=== PATIENT | male | born 1955 | race Caucasian/White ===

== ENCOUNTER → 2016-10-21 | Outpatient (CLI) | payer OTHER ==
[2016-10-21 17:30] LABS: MEAN CORPUSCULAR HEMOGLOBIN 32.1 pg (27.0-33.0); MEAN CORPUSCULAR HGB CONC 34.2 g/dl (32.0-36.5); RED CELL DISTRIBUTION WIDTH 11.9 % (11.5-14.5)
[2016-10-21 17:31] LABS: ALBUMIN 4.3 GM/DL (3.2-5.2); ALKALINE PHOSPHATASE 83 U/L (45-117); ALT/SGPT 34 U/L (12-78); ANION GAP 9 MEQ/L (8-16); AST/SGOT 21 U/L (15-37); BILIRUBIN,TOTAL 0.8 MG/DL (0.2-1.0); BLOOD UREA NITROGEN 14 MG/DL (7-18); CALCIUM LEVEL 9.3 MG/DL (8.5-10.1); CARBON DIOXIDE LEVEL 29 MEQ/L (21-32); CHLORIDE LEVEL 103 MEQ/L (98-107); CHOLESTEROL LEVEL 199 MG/DL (<200); CREATININE FOR GFR 1.08 MG/DL (0.70-1.30); GLOMERULAR FILTRATION RATE > 60.0 (>56); GLUCOSE, FASTING 87 MG/DL (70-105); POTASSIUM SERUM 4.5 MEQ/L (3.5-5.1); SODIUM LEVEL 141 MEQ/L (136-145); TOTAL PROTEIN 7.6 GM/DL (6.4-8.2); TRIGLYCERIDES LEVEL 98 MG/DL (<150)
== END | disposition home or self-care (01) ==
LOC: M WUC 14:55
PROVIDERS: ATTEND Internal Medicine
DX: I10 Essential (primary) hypertension (principal); E78.00 Pure hypercholesterolemia, unspecified

== ENCOUNTER → 2017-10-20 | Outpatient (CLI) | payer OTHER ==
[2017-10-20 19:02] LABS: MEAN CORPUSCULAR HEMOGLOBIN 31.2 pg (27.0-33.0); MEAN CORPUSCULAR HGB CONC 32.6 g/dl (32.0-36.5); MEAN CORPUSCULAR VOLUME 95.6 fl (80.0-96.0); PLATELET COUNT, AUTOMATED 257 10^3/uL (150-450); RED BLOOD COUNT 4.81 10^6/uL (4.30-6.10); RED CELL DISTRIBUTION WIDTH 12.1 % (11.5-14.5); WHITE BLOOD COUNT 7.7 10^3/uL (4.0-10.0)
[2017-10-20 19:12] LABS: ALBUMIN 4.2 GM/DL (3.2-5.2); ALBUMIN/GLOBULIN RATIO 1.31 (1.00-1.93); ALKALINE PHOSPHATASE 83 U/L (45-117); ALT/SGPT 37 U/L (12-78); ANION GAP 5 MEQ/L (8-16); AST/SGOT 24 U/L (7-37); BILIRUBIN,TOTAL 0.6 MG/DL (0.2-1.0); BLOOD UREA NITROGEN 21 MG/DL (7-18); CALCIUM LEVEL 8.5 MG/DL (8.8-10.2); CARBON DIOXIDE LEVEL 31 MEQ/L (21-32); CHLORIDE LEVEL 106 MEQ/L (98-107); CHOLESTEROL LEVEL 149 MG/DL (<200); CHOLESTEROL RISK RATIO 2.865 (<5); CREATININE FOR GFR 1.04 MG/DL (0.70-1.30); GLOMERULAR FILTRATION RATE > 60.0 (>49); GLUCOSE, FASTING 83 MG/DL (80-110); HDL CHOLESTEROL 52 MG/DL (>40); MAGNESIUM LEVEL 2.4 MG/DL (1.8-2.4); NON-HDL-C 97 MG/DL; POTASSIUM SERUM 4.6 MEQ/L (3.5-5.1); SODIUM LEVEL 142 MEQ/L (136-145); TOTAL PROTEIN 7.4 GM/DL (6.4-8.2); TRIGLYCERIDES LEVEL 120 MG/DL (<150)
== END ==
LOC: M WUC 11:16
DX: Z00.00 Encounter for general adult medical examination without abnormal findings (principal); I10 Essential (primary) hypertension; E78.00 Pure hypercholesterolemia, unspecified; J30.9 Allergic rhinitis, unspecified
CPT/HCPCS: 83735

== ENCOUNTER 2018-05-01 07:30 | Day surgery (SDC) | payer OTHER ==
[2018-05-01] MEDS ORDERED: PROPOFOL 200 MG/20 ML VIAL As Ordered ×2 (08:00)
[2018-05-01] MEDS ORDERED: LIDOCAINE 2% INJ 100 MG/5 ML SDV (FOR ANES.) As Ordered (08:00)
[2018-05-01] MEDS: NS 1,000 ML IV (08:00)
== END 2018-05-01 09:26 | disposition home or self-care (01) ==
LOC: M OPP 07:30
DX: Z12.11 Encounter for screening for malignant neoplasm of colon (principal); K64.0 First degree hemorrhoids; D12.2 Benign neoplasm of ascending colon; Z86.010 Personal history of colon polyps; I10 Essential (primary) hypertension; Z79.82 Long term (current) use of aspirin; Z79.899 Other long term (current) drug therapy; Z88.0 Allergy status to penicillin
CPT/HCPCS: 45380

== ENCOUNTER → 2019-01-21 | Outpatient (CLI) | payer OTHER ==
[~2019-01-21] MED LIST: ASPI81TA85 PO; LOSA100T50 PO
--- NOTE | 2019-01-21 16:44 | REP ---
Bilateral inguinal and bilateral scrotal sonography: History: Left scrotal swelling and discomfort. Scrotal sonographic findings: The testes are normal in size and homogeneous in texture. No intratesticular mass lesion is seen. Doppler flow is preserved to both testes. Resistive indices are 0.43 on the right and 0.60 on the left. The right testis dimensions are 4.1 x 1.6 x 2.8 cm. Left testicular dimensions are 3.2 x 1.5 x 2.6 cm. Epididymi are symmetric. There is a right-sided epididymal cyst measuring 0.6 cm in greatest diameter. There are several left-sided epididymal cysts, the largest of these measures 0.9 cm in greatest diameter. There are small bilateral hydroceles. Inguinal sonography: Scanning of the inguinal rings demonstrate bilateral inguinal hernias containing abdominal fat. On the right, the defect is 1 cm in size with a reducible small amount of abdominal fat protruding into the canal with Valsalva and exiting the canal with relaxation. On the left however, there is a herniation of abdominal fat through the inguinal ring into the scrotal sac above the testis. This is not reducible. No bowel content is seen within the hernia. Impression : Bilateral inguinal hernia with non reducible herniation of abdominal fat extending through the inguinal canal on the left into the scrotal sac. Small reducible right inguinal hernia. No other intratesticular abnormality. Electronically Signed by David Lozano MD 01/21/2019 05:16 P
== END ==
LOC: M RAD 14:18
PROVIDERS: ATTEND Family Medicine
DX: K40.20 Bilateral inguinal hernia, without obstruction or gangrene, not specified as recurrent (principal); N50.82 Scrotal pain
CPT/HCPCS: 76857; 76870; 93976; G0463

== ENCOUNTER → 2019-03-15 | Outpatient (CLI) | payer OTHER ==
[~2019-03-15] MED LIST changes: +ATOR1TAB19 PO; +OMEP40CA2 PO
[2019-03-15 16:59] LABS: ALBUMIN 3.9 GM/DL (3.2-5.2); ALT/SGPT 38 U/L (12-78); BILIRUBIN,TOTAL 1.1 MG/DL (0.2-1.0); BLOOD UREA NITROGEN 26 MG/DL (7-18); CALCIUM LEVEL 8.5 MG/DL (8.8-10.2); CARBON DIOXIDE LEVEL 26 MEQ/L (21-32); CHLORIDE LEVEL 105 MEQ/L (98-107); CHOLESTEROL LEVEL 146 MG/DL (<200); CHOLESTEROL RISK RATIO 2.703 (<5); CREATININE FOR GFR 1.11 MG/DL (0.70-1.30); GLOMERULAR FILTRATION RATE > 60.0 (>49); GLUCOSE, FASTING 79 MG/DL (70-100); HDL CHOLESTEROL 54 MG/DL (>40); LDL CHOLESTEROL 81 MG/DL (<100); NON-HDL-C 92 MG/DL; POTASSIUM SERUM 3.9 MEQ/L (3.5-5.1); SODIUM LEVEL 139 MEQ/L (136-145); TOTAL PROTEIN 7.5 GM/DL (6.4-8.2); TRIGLYCERIDES LEVEL 57 MG/DL (<150)
== END ==
LOC: M WUC 12:27
PROVIDERS: ATTEND Internal Medicine
DX: Z00.00 Encounter for general adult medical examination without abnormal findings (principal)

== ENCOUNTER 2019-03-30 07:54 | Day surgery (SDC) | payer OTHER ==
[~2019-03-30] VITALS: Ht 172.7 cm; Wt 108.4 kg
[~2019-03-30 07:54] MED LIST changes: +LIDOCAINE 1% MDV 20ML VIAL SQ PRN; +LR 1,000 ML IV ONE
[2019-03-30] MEDS ORDERED: MIDAZOLAM INJ 2 MG/2 ML VIAL (J2250) As Ordered ONE (08:24)
[2019-03-30] MEDS ORDERED: fentaNYL 100 MCG/2 ML INJECTION (J3010) As Ordered ONE (08:24)
[2019-03-30] MEDS ORDERED: ROCURONIUM BROMIDE 50 MG/5 ML VIAL As Ordered ONE (08:25)
[2019-03-30] MEDS ORDERED: LIDOCAINE 2% INJ 100 MG/5 ML SDV (FOR ANES.) As Ordered ONE (08:25)
[2019-03-30] MEDS ORDERED: KETOROLAC 60 MG/2 ML VIAL (J1885) As Ordered ONE (08:25)
[2019-03-30] MEDS ORDERED: dexameTHASONE 4 MG/ML 1ML VIAL (J1100) As Ordered ONE (08:25)
[2019-03-30] MEDS ORDERED: ONDANSETRON 4MG/2ML VIAL (J2405) As Ordered ONE (08:25)
[2019-03-30] MEDS ORDERED: KETAMINE HCL 200 MG/20 ML VIAL As Ordered ONE (08:26)
[2019-03-30] MEDS ORDERED: PROPOFOL 200 MG/20 ML VIAL As Ordered ONE (08:28)
[2019-03-30] MEDS ORDERED: SUGAMMADEX SODIUM 500 MG/5 ML VIAL (BRIDION) As Ordered ONE (08:32)
[2019-03-30] MEDS ORDERED: LevoFLOXacin(LEVAQUIN)500 MG/100 ML BAG (J1956) As Ordered ONE (09:21)
[2019-03-30] MEDS ORDERED: BUPIVACAINE/EPIN 0.25% 30 ML VIAL As Ordered ONE (09:24)
[2019-03-30] MEDS ORDERED: LevoFLOXacin IV 500 MG in APPROPRIATE DILUENT 1 EA IV ONE (10:00)
[2019-03-30] MEDS ORDERED: ACETAMINOPHEN 1000MG 100ML IV BTL (OFIRMEV) (J0131 PER 10MG) As Ordered ONE (11:01)
[2019-03-30] MEDS ORDERED: METHOCARBAMOL 1,000 MG/10 ML VIAL (J2800) As Ordered ONE (11:01)
--- NOTE | 2019-03-30 12:25 | RO ---
DATE OF PROCEDURE: 03/30/2019 PREOPERATIVE DIAGNOSIS: Left inguinal hernia. POSTOPERATIVE DIAGNOSIS: Left inguinal hernia (indirect and lipoma of the cord). PROCEDURE:Robotic Assisted Laparoscopic Left Inguinal Hernia Repair. SURGEON: Dr. Jc Coleman ENGRAVER BLOCK: Cheryl Iverson (provided instrument exchange, trocar placement and trocar closure as well as mesh placement). ANESTHESIA: General endotracheal anesthesia ESTIMATED BLOOD LOSS: Minimal FLUIDS: Crystalloid DISPOSITION: The patient was taken to recovery room awake, alert hemodynamic stable. Sponge and needle counts correct times two. DESCRIPTION OF OPERATION: The patient was taken operating room and was given general anesthesia after adequate anesthesia and preoperative antibiotics were given, the patient was prepped and draped in the usual sterile fashion. Next a supraumbilical incision was made with skin knife. Blunt dissection was carried down to fascia and Veress needle placed into the abdominal cavity insufflated to 15 mm pressure dilating an 8 mm trocar was placed under direct visualization and two lateral 8 mm trocars were placed. The camera/robot was docked and then the left inguinal area showed a very large lipoma cord with a relatively small indirect hernia on that side but the lipoma was very large and was going down into the scrotum itself. In any case, the peritoneum was taken down with sharp dissection and electrocautery. Blunt dissection was used to create this peritoneal plane and all the way down to the cord structures Bro's ligament. Once this was mobilized off the cord structures and Bro's, then the lipoma was pushed back into the abdominal cavity. It was in the scrotum at this time and was pushed up, grasped and then dissected off surrounding tissue that was dissected proximally. Given it was such a large lipoma, there was a great deal of a stalk to it and I approximately mobilized this significantly so that the mesh could be placed in the appropriate preperitoneal spot with the lipoma and being able to sit on the top of this. In any case, at that this point it was obvious that it was coming posterior to the cord structures and the cord structures were elevated to some extent. I felt that I needed to dissect posterior the cord structures and placed the mesh with a slit behind the cord structures in this area. Once this was placed, the mesh was lying quite nicely in this area. The lipoma did slide in and out a fair bit and at this point I felt it was reasonable to tack it to the peritoneal closure and remove a good portion of the lipoma as well. It was placed in an EndoCatch bag, brought out through the right-sided 8 mm trocar site. Next the incisions were all closed with #4-0 Vicryl and Steri-Strips and a dry sterile dressing was applied. The patient was awakened, extubated, brought to the recovery room awake, alert, hemodynamically stable. Sponge and needle counts were correct time two. FLORA
[2019-03-30] MEDS ORDERED: LR 1,000 ML IV SCH ×2 (13:15)
[2019-03-30] MEDS ORDERED: NORCO, ANEXSIA 5/325MG TABLET (HYDROcodone/ACETAMINOPHEN) PO PRN (13:15)
[2019-03-30] MEDS ORDERED: METOCLOPRAMIDE INJ 10MG/2ML VIAL (J2765) IV PRN (13:15)
[2019-03-30] MEDS ORDERED: ONDANSETRON 4MG/2ML VIAL (J2405) IV PRN (13:15)
[2019-03-30] MEDS ORDERED: diphenhydrAMINE INJ 50MG/ML VIAL (J1200) IV PRN (13:15)
[2019-03-30] MEDS ORDERED: oxyCODONE 5MG TAB PO PRN (13:30)
[2019-03-30] MEDS: fentaNYL 100 MCG/2 ML INJECTION (J3010) IV PRN ×4 (13:55→14:10)
[2019-03-30] MEDS ORDERED: KETOROLAC 30 MG/ML VIAL (J1885) IV SCH (15:00)
[2019-03-30 16:50] VITALS: BP 132/88
== END 2019-03-30 17:00 | disposition home or self-care (01) ==
LOC: M SDC 07:54
PROVIDERS: ATTEND Surgery
DX: K40.90 Unilateral inguinal hernia, without obstruction or gangrene, not specified as recurrent (principal); I10 Essential (primary) hypertension; K21.9 Gastro-esophageal reflux disease without esophagitis; Z79.82 Long term (current) use of aspirin; Z79.899 Other long term (current) drug therapy; Z88.0 Allergy status to penicillin
CPT/HCPCS: 49650; C1781; J0131; J1100; J1885; J1956; J2250; J2405; J2800; J3010

== ENCOUNTER → 2019-11-03 | Outpatient (CLI) | payer OTHER ==
[~2019-11-03] MED LIST changes: -LIDOCAINE 1% MDV 20ML VIAL SQ PRN; -LR 1,000 ML IV ONE; -OMEP40CA2 PO; +OMEP40CA97 PO
[2019-11-03 17:06] LABS: HEMATOCRIT 49.9 % (42.0-52.0); MEAN CORPUSCULAR HEMOGLOBIN 30.9 pg (27.0-33.0); MEAN CORPUSCULAR HGB CONC 32.1 g/dl (32.0-36.5); MEAN CORPUSCULAR VOLUME 96.3 fl (80.0-96.0); PLATELET COUNT, AUTOMATED 238 10^3/uL (150-450); RED BLOOD COUNT 5.18 10^6/uL (4.30-6.10)
[2019-11-03 17:19] LABS: ALBUMIN 4.3 GM/DL (3.2-5.2); ALT/SGPT 48 U/L (12-78); BILIRUBIN,TOTAL 0.9 MG/DL (0.2-1.0); BLOOD UREA NITROGEN 17 MG/DL (7-18); CALCIUM LEVEL 8.9 MG/DL (8.8-10.2); CARBON DIOXIDE LEVEL 29 MEQ/L (21-32); CHLORIDE LEVEL 102 MEQ/L (98-107); CHOLESTEROL LEVEL 146 MG/DL (<200); CHOLESTEROL RISK RATIO 3.173 (<5); CREATININE FOR GFR 1.15 MG/DL (0.70-1.30); GLOMERULAR FILTRATION RATE > 60.0 (>49); GLUCOSE, FASTING 82 MG/DL (70-100); HDL CHOLESTEROL 46 MG/DL (>40); LDL CHOLESTEROL 86 MG/DL (<100); MAGNESIUM LEVEL 2.1 MG/DL (1.8-2.4); NON-HDL-C 100 MG/DL; POTASSIUM SERUM 4.4 MEQ/L (3.5-5.1); SODIUM LEVEL 138 MEQ/L (136-145); TOTAL PROTEIN 7.8 GM/DL (6.4-8.2); TRIGLYCERIDES LEVEL 69 MG/DL (<150)
== END ==
LOC: M WUC 11:16
PROVIDERS: ATTEND Internal Medicine
DX: Z00.00 Encounter for general adult medical examination without abnormal findings (principal); E78.00 Pure hypercholesterolemia, unspecified; Z12.5 Encounter for screening for malignant neoplasm of prostate; Z86.010 Personal history of colon polyps
CPT/HCPCS: 36415; 80053; 80061; 83735; 84443; 85027; G0103

== ENCOUNTER → 2020-11-24 | Outpatient (CLI) | payer OTHER ==
[~2020-11-24] MED LIST changes: -ASPI81TA85 PO; +ASPI81TA86 PO
[2020-11-24 11:43] LABS: BASO # 0.1 10^3/uL (0.0-0.2); BASO % 0.7 % (0.0-1.0); EOS # 0.2 10^3/uL (0.0-0.5); EOS % 2.6 % (0.0-3.0); HEMATOCRIT 46.9 % (42.0-52.0); LYMPH # 3.2 10^3/uL (1.5-5.0); LYMPH % 39.2 % (24.0-44.0); MEAN CORPUSCULAR HEMOGLOBIN 30.5 pg (27.0-33.0); MEAN CORPUSCULAR VOLUME 95.3 fl (80.0-96.0); MONO # 0.9 10^3/uL (0.0-0.8); MONO % 10.7 % (2.0-8.0); NEUTROPHILS # 3.8 10^3/uL (1.5-8.5); NEUTROPHILS % 46.6 % (36.0-66.0); PLATELET COUNT, AUTOMATED 249 10^3/uL (150-450); RED BLOOD COUNT 4.92 10^6/uL (4.30-6.10); WHITE BLOOD COUNT 8.2 10^3/uL (4.0-10.0)
[2020-11-24 12:23] LABS: ALBUMIN 3.9 GM/DL (3.2-5.2); ALT/SGPT 44 U/L (12-78); BILIRUBIN,TOTAL 1.1 MG/DL (0.2-1.0); BLOOD UREA NITROGEN 22 MG/DL (7-18); CALCIUM LEVEL 9.2 MG/DL (8.8-10.2); CARBON DIOXIDE LEVEL 31 MEQ/L (21-32); CHLORIDE LEVEL 102 MEQ/L (98-107); CHOLESTEROL LEVEL 145 MG/DL (<200); CHOLESTEROL RISK RATIO 3.152 (<5); CREATININE FOR GFR 1.13 MG/DL (0.70-1.30); GLOMERULAR FILTRATION RATE > 60.0 (>49); GLUCOSE, FASTING 81 MG/DL (70-100); HDL CHOLESTEROL 46 MG/DL (>40); LDL CHOLESTEROL 82 MG/DL (<100); MAGNESIUM LEVEL 2.1 MG/DL (1.8-2.4); NON-HDL-C 99 MG/DL; POTASSIUM SERUM 4.6 MEQ/L (3.5-5.1); SODIUM LEVEL 139 MEQ/L (136-145); TOTAL PROTEIN 7.2 GM/DL (6.4-8.2); TRIGLYCERIDES LEVEL 83 MG/DL (<150)
[2020-11-24 12:56] LABS: HEPATITIS C VIRUS ABY INDEX 0.1 INDEX (<0.8)
== END ==
LOC: M WUC 08:49
PROVIDERS: ATTEND Internal Medicine
DX: E78.00 Pure hypercholesterolemia, unspecified (principal); I10 Essential (primary) hypertension; Z86.010 Personal history of colon polyps
CPT/HCPCS: 36415; 80053; 80061; 83735; 85025; 86803; G0103

== ENCOUNTER 2021-08-03 21:16 | Emergency (ER) | payer OTHER ==
[~2021-08-03] VITALS: Ht 172.7 cm; Wt 115.9 kg
[~2021-08-03 21:16] MED LIST changes: +OMEP40CA4 PO; -OMEP40CA97 PO
[2021-08-03 21:18] VITALS: BP 165/99
--- OUTSIDE RECORDS SUMMARY | 2021-08-03 21:28 | CCD ---
Author Author [facility] em[facility] Organization [facility] ems Address Unknown Phone Unavailable Care Team Providers Care Production Welding Supervisor Name Role Phone Ken Dubois Unavailable PROBLEMS Type Condition ICD9-CM Code [id number] Code Onset Dates Condition S tatus W/U Status Risk SNOMED Code Notes Problem History of adenomatous polyp of colon Z86.010 Ac tive confirmed 920572133 He had an adenomatous polyp in 2008 and again in April 2018. Problem Hypercholesterolemia E78.00 Active confirmed 34857543 He is on Lipitor 2 days a week. He stopped taking Crestor because it was not preferred on his pharmaceutical plan. Lipids are controlled to secondary prevention targets. This was last assessed November 2020 and labs are optimal. Problem Gastroesophageal reflux disease without esophagitis K21.9 Active confirmed [id number] He is on omeprazole therapy. His last upper endoscopy was in April 2018 and was fairly unremarkable. Problem Age-related incipient cataract of both eyes H25.09 3 Active confirmed [id number] Problem Lentigines L81.4 Active confirmed 296817484 Problem Allergic rhinitis J30.9 Active confirmed 61 313645 His symptoms are palliated with [id number] Chlor-Trimeton. He is no longer using Rhinocort. Problem Melanocytic nevi of trunk D22.5 Active confirmed 173591538 Problem Essential (primary) hypertension I10 Active conf irmed 33483596 Echocardiogram was unremarkable in September 2012 and again in August 2018. He was started on lisinopril therapy in 2015 but developed a cough. He is now on losartan 100 mg with hydrochlorothiazide 12.5 mg daily. Problem Sebaceous hyperplasia L73.8 Active confirmed 702913616 Problem Folliculitis L73.9 Active confirmed 8893429 6 Problem Actinic keratoses L57.0 Active confirmed 40 0971557 Problem Seborrheic keratoses L82.1 Active confirmed 705552181 ALLERGIES Allergen (clinical drug ingredient) Drug/Non Drug Allergy do cumented on EMR Reaction Allergy Type Onset Date Status Penicillin (For Allergies Use Only) Hives Drug Allerg y Active ENCOUNTERS from 1955 to 2021-06-05 Encounter Location Date Provider Diagnosis [facility] Carlene [address] [facility] [phone] [place] [address] 31 May, 2021 Ken Dubois IMMUNIZATIONS Vaccine Route Administration Date Status COVID-19 dose #2 given elsewhere Unspecified Unknown Oct 31, 2020 Administered COVID-19 dose #1 given elsewhere Unspecified Unknown Oct 03, 2020 Administered Influenza Pharmacy Given Unknown Aug 10, 2020 Adminis tered Influenza Pharmacy Given Unknown Jul 12, 2019 Adminis tered TDAP Unknown May 25, 2008 Administered TD Adult 0.5mL Tetanus Unknown May 04, 2019 Administe red TD Adult 0.5mL Tetanus Unknown Aug 17, 2003 Administe red Influenza 6mo & up Fluzone Unknown Jun 20, 2015 Admin istered Influenza 6mo & up Fluzone Unknown Jul 28, 2014 Admin istered SOCIAL HISTORY Tobacco Use: Social History Observation Description Date Details (start date - stop date) Never Smoker Sex Assigned At : Social History Observation Description Sex Assigned At Unknown Audit Question Answer Notes Total Score: 1 Interpretation: Alcohol Education Language: Question Answer Notes Languages spoken: Bolivian Temple: Question Answer Notes Temple No gnosticism beliefs that would impact health care. Domestic Violence: Question Answer Notes Status: Sexual Hx: Question Answer Notes Had sex in the last 12 months (vaginal, oral, or anal)? Yes Have you ever had an STD? No with Women only Drug and Alcohol Question Answer Notes Total Score: 0 Interpretation: No problems reported Alcohol Screening: Question Answer Notes Did you have a drink containing alcohol in the past year? Ye s Points 1 Interpretation Negative How often did you have six or more drinks on one occas ion in the past year? Never (0 points) How many drinks did you have on a typica l day when you were drinking in the past year? 1 or 2 (0 points) How often did you have a drink containing alcohol in t he past year? Monthly or less (1 point) BMI Care Goal Follow-Up Question Answer Notes Above Normal BMI Follow-Up Weight monitoring Tobacco Use: Question Answer Notes Are you a: never smoker REASON FOR REFERRAL No Information VITAL SIGNS No information MEDICATIONS Medication SIG (Take, Route, Frequency, Duration) Notes Start Da te End Date Status Losartan Potassium-HCTZ 100-12.5 MG 1 tablet Orally On ce a day; fill when pt requests for 90 day(s) Oct, Active Chlorpheniramine Maleate 4 mg 1 tablet as needed Orally daily PRN Active Omeprazole 40 MG 1 capsule Orally Once a day; fill when pt requests for 90 day(s) Jul, Active Lipitor 10 MG 1 tablet Orally Daily; fill when pt requests for 90 day(s) Jul, Active Sildenafil Citrate 100 MG 1 tablet Orally Once a day as needed f or 30 day(s) Oct, Active PROCEDURES No Information RESULTS No Results REASON FOR VISIT Re:RE:Surgical Referral MEDICAL (GENERAL) HISTORY Type Description Date Medical History Essential (primary) hypertension Medical History Hypercholesterolemia Medical History History of adenomatous polyp of colon Medical History Allergic rhinitis Surgical History Right inguinal hernia repair 1987 Surgical History Carpal Tunnel Release , bila teral (left 10/12/2003, right 11/09/2003) 2003 Surgical History Right femoral lymph node resecection for cat scratch fever 07/14/1995 Surgical History LASIK Eye Surgery 11/18/2008 Surgical History Colonoscopy 06/2009 Surgical History Left inguinal hernia repair 03/30/2019 Goals Section No Information Health Concerns No Information MEDICAL EQUIPMENT No Information MENTAL STATUS No Information FUNCTIONAL STATUS No Information ASSESSMENTS No Information PLAN OF TREATMENT Next Appt Details Provider Name:Ken Dubois, 2021-12-03 03 :30:00 PM, [address] [facility] [phone], [place], [address], Provider Name:Saida Singletary, 02:45:00 PM, [address] [facility] [phone], [place], [address], Insurance Providers Payer Name Payer Address Payer Phone Insured Name Patient Relati onship to Insured Coverage Start Date Coverage End Date [facility] [id number] [place] [id number] ORA JOHNSTON self
--- OUTSIDE RECORDS SUMMARY | 2021-08-03 21:28 | CCD ---
Author Author Donnie Liao MD [facility] Organization Donnie Liao MD [facility] Address [address] [place] [id number] Phone Care Team Providers Care Parking Meter Attendant Name Role Phone Yanni RAYMUNDO, Donnie SIMEON Unavailable [phone] Reason for Referral No Reason for Referral Recorded Problems Includes: Active, inactive, and resolved Problems All Visits Onset Date - Time Resolved Date - Time Provider Co ndition Status Cataract Senile Cortical 05/01/2020 - 12:00AM Donnie Liao MD, FACS Active Essential Hypertension 05/01/2020 - 12:00AM Donnie Bradley MD, FACS Active Retinopathy Hypertensive 05/01/2020 - 12:00AM Donnie Liao MD, FACS Active Pinguecula 05/01/2020 - 12:00AM Donnie Liao MD, FACS Active Cataract Senile Nuclear 05/01/2020 - 12:00AM Donnie Liao MD, FACS Active Dry Eye Syndrome 05/01/2020 - 12:00AM Donnie burdick MD, FACS Active Vitreous Disorders Degeneration 05/01/2020 - 12:00AM Donnie Liao MD, FACS Active Migraine Headache 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 05/01/2020 - 12:00AM Donnie Liao MD, FACS Active Plan of Treatment No Plan of Treatment Recorded Assessments Includes: Assessments for all patient encounters Findings Encounter Date Cortical senile cataract 1 Year Follow-Up with Donnie Quan MD, CAILIN 05/23/2021 Dry eye syndrome 1 Year Follow-Up with Donnie hall MD, CAILIN 05/23/2021 Essential hypertension 1 Year Follow-Up with Donnie Colin MD, FACS 05/23/2021 Hypertensive retinopathy 1 Year Follow-Up with Donnie Quan MD, FACS 05/23/2021 Nuclear senile cataract 1 Year Follow-Up with Donnie Butler MD, FACS 05/23/2021 Cortical senile cataract TRIAGE NEW PATIENT with Donnie Cowart MD, FACS 05/01/2020 Dry eye syndrome TRIAGE NEW PATIENT with Donnie burdick MD, FACS 05/01/2020 Essential hypertension TRIAGE NEW PATIENT with Donnie Quan MD, FACS 05/01/2020 Hypertensive retinopathy TRIAGE NEW PATIENT with Donnie Cowart MD, FACS 05/01/2020 Nuclear senile cataract TRIAGE NEW PATIENT with Donnie White MD, FACS 05/01/2020 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 TRIAGE NEW PATIENT with Donnie Liao MD, FACS 05/01/2020 Pinguecula TRIAGE NEW PATIENT with Donnie burdick MD, FACS 05/01/2020 Vitreous degeneration TRIAGE NEW PATIENT with Donnie Btuler MD, FACS 05/01/2020 Instructions Instructions not supported for this document typeNo Instructions Recorded Medical Equipment - Implanted Devices Includes: Current and historical DevicesNo Medical Equipment Recorded Medications Includes: Current and historical Medications Current Medications (continue as prescribed) Diovan HCT 100-25 MG Oral Tablet 05/01/2020 Provide r: Diagnosis: Aspirin Adult Low Dose 81 MG Oral Tablet Delayed Release Provider: Diagnosis: Atorvastatin 10 mg Oral Tablet 05/01/2020 Provider: Diagnosis: Friday and Medications Administered Includes: Administered Medications in patient's chartNo Administered Medications Recorded Vital Signs Includes: Vital Signs from 08/02/2020 through 08/02/2021No Vital Signs Recorded For Specified Dates Results Includes: Results from 08/02/2020 through 08/02/2021No Results Recorded For Specified Dates History of Present Illness History of Present Illness not supported for this document typeNo History of Present Illness Recorded Social History Description Last Updated Not a current smoker 05/23/2021 Alcohol use 1-2 beers monthly 05/01/2020 No tobacco use 05/01/2020 Not using drugs 05/01/2020 No smoking status : Never smoked/ Recode: 4 05/01/2020 Procedures and Surgical History Surgical History Last Updated History of LASIK surgery of both corneas 2006 020 Surgical / procedural history Right Inquinal Hernia R epair 03/201905/01/2020 Medical History Includes: Medical History in patient's chart Description Last Updated Reported medical history Cat Scratch Fever 1996, Hist ory migraines 05/01/2020 History of essential hypertension 05/01/2020 History of hypertension 05/01/2020 History of arthritis 05/01/2020 History of hyperlipidemia 05/01/2020 Family History Includes: Family History in patient's chart Description Last Updated Fraternal history of hypertension 05/01/2020 Maternal history of heart disease 05/01/2020 Maternal history of hypertension 05/01/2020 Paternal history of arthritis 05/01/2020 Paternal history of cataract 05/01/2020 Paternal history of family history of cancer 0 Review of Systems Review of Systems not supported for this document typeNo Review of Systems Recorded Mental Status Mental Status not supported for this document type Description Oriented to time, place, and person Functional Status Functional Status not supported for this document typeNo Functional Status Recorded Physical Exam Physical Exam not supported for this document typeNo Physical Exam Recorded Immunizations Includes: Immunizations in patient's chartNo Immunizations Recorded Allergies Includes: Active, inactive, and resolved Allergies Substance Type Reaction Onset Date - Time Resolved Date - Ti me Status Penicillins Allergy 05/01/2020 - 12:11PM Act blue Encounters Includes: Encounters from 08/02/2020 through 08/02/2021 Encounter Provider Location Date Check-In Time Check-Out Time D iagnosis 1 Year Follow-Up Donnie Liao MD, FACS Donnie Torres [facility] 05/23/2021 8:29AM 9:29AM Essential Hypertensi on, Retinopathy Hypertensive, Cataract Senile Cortical, Cataract Senile Nuclear, Dry Eye Syndrome Insurance Includes: Active Insurance Policies Plan Name Member ID Group # Subscriber Relationship Effective Da giuseppe 1 - PRIME RETIRED [id number] Cain Wilburn Advance Directives Includes: Current Advance DirectivesNo Advance Directives Recorded Health Concerns Includes: Active Health ConcernsNo Active Health Concerns Recorded Goals Includes: Active GoalsNo Active Goals Recorded Interventions Includes: Interventions for active GoalsNo Interventions Recorded Evaluations & Outcomes Includes: Evaluations & Outcomes for active GoalsNo Outcomes Recorded
--- OUTSIDE RECORDS SUMMARY | 2021-08-03 21:28 | CCD ---
Author Author [facility] Organization [facility] Address Unknown Phone Unavailable Care Team Providers Care Director Of Preclinical Research Name Role Phone Yuan Colin, Bogdan Fields MD, FACS Unavailable Unavailable Bolden Colin, Bogdan Fields MD, FACS Unavailable Unavailable Bolden Colin, Bogdan Fields MD, FACS Unavailable Unavailable Bolden Colin, Bogdan Fields MD, FACS Unavailable Unavailable Bolden Colin, Bogdan Fields MD, FACS Unavailable Unavailable Bolden Colin, Bogdan Fields MD, FACS Unavailable Unavailable Bolden Colin, Bogdan Fields MD, FACS Unavailable Unavailable Bolden Colin, Bogdan Fields MD, FACS Unavailable Unavailable Bolden Colin, Bogdan Fields MD, FACS Unavailable Unavailable Bolden Colin, Bogdan Fields MD, FACS Unavailable Unavailable Bolden Colin, Bogdan Fields MD, FACS Unavailable Unavailable Bolden Colin, Bogdan Fields MD, FACS Unavailable Unavailable Bolden Colin, Bogdan Fields MD, FACS Unavailable Unavailable Bolden Colin, Bogdan Fields MD, FACS Unavailable Unavailable Bolden Colin, Bogdan Fields MD, FACS Unavailable Unavailable Bolden Colin, Bogdan Fields MD, FACS Unavailable Unavailable Bolden Colin, Bogdan Fields MD, FACS Unavailable Unavailable Bolden Colin, Bogdan Fields MD, FACS Unavailable Unavailable Bolden Colin, Bogdan Fields MD, FACS Unavailable Unavailable Bolden Colin, Bogdan Fields MD, FACS Unavailable Unavailable Bolden Colin, Bogdan Fields MD, FACS Unavailable Unavailable Bolden Colin, Bogdan Fields MD, FACS Unavailable Unavailable Bolden Colin, Bogdan Fields MD, FACS Unavailable Unavailable Bolden Colin, Bogdan Fields MD, FACS Unavailable Unavailable Bolden Colin, Bogdan Fields MD, FACS Unavailable Unavailable Bolden Colin, Bogdan Fields MD, FACS Unavailable Unavailable Bolden Colin, Bogdan Fields MD, FACS Unavailable Unavailable Bolden Colin, Bogdan Fields MD, FACS Unavailable Unavailable Bolden Colin, Bogdan Fields MD, FACS Unavailable Unavailable Bolden Colin, Bogdan Fields MD, FACS Unavailable Unavailable Bolden Colin, Bogdan Fields MD, FACS Unavailable Unavailable Bolden Colin, Bogdan Fields MD, FACS Unavailable Unavailable Bolden Colin, Bogdan Fields MD, FACS Unavailable Unavailable Bolden Colin, Bogdan Fields MD, FACS Unavailable Unavailable Bolden Colin, Bogdan Fields MD, FACS Unavailable Unavailable Bolden Colin, Bogdan Fields MD, FACS Unavailable Unavailable Bolden Colin, Bogdan Fields MD, FACS Unavailable Unavailable Bolden Colin, Bogdan Fields MD, FACS Unavailable Unavailable Bolden Colin, Bogdan Fields MD, FACS Unavailable Unavailable Re-disclosure Warning The records that you are about to access may contain information from federally-assisted alcohol or drug abuse programs. If such information is present, then the following federally mandated warning applies: This information has been disclosed to you from records protected by federal confidentiality rules (42 CFR part 2). The federal rules prohibit you from making any further disclosure of this information unless further disclosure is expressly permitted by the written consent of the person to whom it pertains or as otherwise permitted by 42 CFR part 2. A general authorization for the release of medical or other information is NOT sufficient for this purpose. The Federal rules restrict any use of the information to criminally investigate or prosecute any alcohol or drug abuse patient.The records that you are about to access may contain highly sensitive health information, the redisclosure of which is protected by Article 27-F of the [place] Public [employer] law. If you continue you may have access to information: Regarding HIV / AIDS; Provided by facilities licensed or operated by the [place] Office of Mental Health; or Provided by the [place] [facility] Office for People With Developmental Disabilities. If such information is present, then the following [place] [facility] mandated warning applies: This information has been disclosed to you from confidential records which are protected by state law. State law prohibits you from making any further disclosure of this information without the specific written consent of the person to whom it pertains, or as otherwise permitted by law. Any unauthorized further disclosure in violation of state law may result in a fine or shelter sentence or both. A general authorization for the release of medical or other information is NOT sufficient authorization for further disc losure. Family History Family Member Name Family Member Gender Family Member Status Date o f Status Description Data Source(s) Unknown Unknown Problem MEDENT ([facility]) Unknown Unknown Problem MEDENT ([facility]) Unknown Male Problem MEDENT ([facility]) Encounters Encounter Providers Location Date Indications Data Source(s ) [place] [address] [facility] [address] 06/05/2021 12:00:00 AM EDT eCW1 ([facility]) [place] [address] [facility] [address] 05/31/2021 12:00:00 AM EDT eCW1 ([facility]) <td ID="encounterTypeDescriptionID0">1 Y ear Follow-Up</td><td>Donnie Colin MD, FACS</td><td>Donnie Liao MD [facility]</td><td>05/23/2021</td><td>8:29AM</td><td>9:29AM</td><td><content ID="encounterDiagnosisID0-0">Essential Hypertension</content>, <content ID="encounterDiagnosisID0-1">Retinopathy Hypertensive</content>, <content ID="encounterDiagnosisID0-2">Cataract Senile Cortical</content>, <content ID="encounterDiagnosisID0-3">Cataract Senile Nuclear</content>, <content ID="encounterDiagnosisID0-4">Dry Eye Syndrome</content></td>Outpatient Attender: Donnie Colin MD, FACS Donnie Liao MD [facility] 05/23/2021 08:29:00 AM EDT - 05/23/2021 09:29:00 AM EDT Dry Eye SyndromeCataract Senile NuclearC ataract Senile CorticalRetinopathy HypertensiveEssential HypertensionDry Eye SyndromeCataract Senile NuclearCataract Senile CorticalRetinopathy HypertensiveEssential Hypertension LISA (Donnie Colin MD [facility]) Dry Eye Syndrome Cataract Senile Nuclear Cataract Senile Cortical Retinopathy Hypertensive Essential Hypertension Dry Eye Syndrome Cataract Senile Nuclear Cataract Senile Cortical Retinopathy Hypertensive Essential Hypertension Unknown [address] [facility] [address] 04/23/2021 12:00:00 AM EDT eCW1 ([facility]) [place] [address] [facility] [address] 01/12/2021 12:00:00 AM EDT eCW1 [facility]) [place] [address] [facility] [address] 11/27/2020 12:00:00 AM EST eCW1 ([facility]) [place] [address] [facility] [address] 11/27/2020 12:00:00 AM EST eCW1 ([facility]) [place] [address] [facility] [address] 11/23/2020 12:00:00 AM EST eCW1 ([facility]) [place] [address] [facility] [facility] [address] 11/22/2020 12:00:00 AM EST eCW1 ([facility]) [place] [address] [facility] [facility] [address] 11/22/2020 12:00:00 AM EST eCW1 ([facility]) [facility] [address] [facility] [address] 11/03/2020 12:00:00 AM EST eCW1 ([facility]) [facility] [address] [place] [address] 06/16/2020 12:00:00 AM EDT eCW1 ([facility]) Immunizations Vaccine Date Status Description Data Source(s) COVID-19 dose #2 given elsewhere Unspecified 10/31/2020 03:3 3:00 PM EST completed eCW1 ([facility]) COVID-19 dose #2 given elsewhere Unspecified 10/31/2020 03:3 3:00 PM EST completed eCW1 ([facility]) COVID-19 dose #2 given elsewhere Unspecified 10/31/2020 03:3 3:00 PM EST completed eCW1 ([facility]) COVID-19 dose #2 given elsewhere Unspecified 10/31/2020 03:3 3:00 PM EST completed eCW1 ([facility]) COVID-19 dose #2 given elsewhere Unspecified 10/31/2020 03:3 3:00 PM EST completed eCW1 ([facility]) COVID-19 dose #2 given elsewhere Unspecified 10/31/2020 03:3 3:00 PM EST completed eCW1 ([facility]) COVID-19 VACCINE Moderna 10/31/2020 12:00:00 AM EST completed [facility] Vaccine Series Complete: YESThis Data wa s Submitted to [facility] [employer] COVID-19 dose #1 given elsewhere Unspecified 10/03/2020 03:3 3:00 PM EST completed eCW1 ([facility]) COVID-19 dose #1 given elsewhere Unspecified 10/03/2020 03:3 3:00 PM EST completed eCW1 ([facility]) COVID-19 dose #1 given elsewhere Unspecified 10/03/2020 03:3 3:00 PM EST completed eCW1 ([facility]) COVID-19 dose #1 given elsewhere Unspecified 10/03/2020 03:3 3:00 PM EST completed eCW1 ([facility]) COVID-19 dose #1 given elsewhere Unspecified 10/03/2020 03:3 3:00 PM EST completed eCW1 ([facility]) COVID-19 dose #1 given elsewhere Unspecified 10/03/2020 03:3 3:00 PM EST completed eCW1 ([facility]) COVID-19 VACCINE Moderna 10/03/2020 12:00:00 AM EST completed [facility] Vaccine Series Complete: NOThis Data was Submitted to [facility] [employer] IIV3. This is one of two codes replacing CVX 15, which is being retired. 08/10/2020 03:34:00 PM EST completed eCW1 ([facility]) IIV3. This is one of two codes replacing CVX 15, which is being retired. 08/10/2020 03:34:00 PM EST completed eCW1 ([facility]) IIV3. This is one of two codes replacing CVX 15, which is being retired. 08/10/2020 03:34:00 PM EST completed eCW1 ([facility]) IIV3. This is one of two codes replacing CVX 15, which is being retired. 08/10/2020 03:34:00 PM EST completed eCW1 ([facility]) IIV3. This is one of two codes replacing CVX 15, which is being retired. 08/10/2020 03:34:00 PM EST completed eCW1 ([facility]) IIV3. This is one of two codes replacing CVX 15, which is being retired. 08/10/2020 03:34:00 PM EST completed eCW1 ([facility]) Medications No Information Insurance Providers Payer name Policy type / Coverage type Policy ID Covered constitution party ID Covered constitution party's relationship to chu Policy Chu Plan Information [id number] ANSI-Commercial [id number] ANSI-Not a Secondary Insurance [id number] ANSI-Commercial [id number] ANSI-Not a Secondary Insurance [id number] Located Within [facility] [id number] Self [id number] ANSI-Not a Secondary Insurance [id number] ANSI-Commercial [id number] ANSI-Commercial [id number] ANSI-Not a Secondary Insurance [id number] ANSI-Commercial [id number] ANSI-Not a Secondary Insurance [id number] ANSI-Not a Secondary Insurance [id number] ANSI-Commercial [id number] [facility] [id number] SP [id number] ANSI-Not a Secondary Insurance [id number] ANSI-Commercial [id number] ANSI-Not a Secondary Insurance [id number] [facility] ([facility] [facility]) [id number] Self [id number] [employer] Commercial [id number] Self [id number] [facility] ([facility] [place] [facility]) [id number] Self [id number] ANSI-Not a Secondary Insurance [id number] ANSI-Commercial [id number] [employer] [id number] SP [id number] [id number] Self [id number] [facility] [id number] SP [id number] [employer] [place] 306/8 P [id number] S [id number] ANSI-Commercial [id number] [facility] [id number] SP [id number] Problems, Conditions, and Diagnoses Code Display Name Description Problem Type Effective Dates Data Source(s) H25.093 [id number] Age-related incipient cataract of both ey es Problem 06/05/2021 12:00:00 AM EDT eCW1 ([facility]) Surgeries/Procedures Procedure Description Date Indications Data Source(s) Surgical / procedural history Right Inquinal Hernia R epair 03/2019 Surgical / procedural history Right Inquinal Hernia Repair 03/201905/23/2021 12:00:00 AM EDT LISA (Donnie Colin MD [facility]) Laser assisted in situ keratomileusis (procedure) Hist ory of LASIK surgery of both corneas 200605/23/2021 12:00:00 AM EDT LISA (Timmy Colin MD [facility]) Results ID Date Data Source LIPID PANEL (CARDIAC RISK) 11/24/2020 12:00:00 AM EST eCW1 ( [facility]) Name Value Range Interpretation Code Description Data Antoinette rce(s) Supporting Document(s) Triglyceride [Mass/volume] in Serum or Plasma by calculation 83 <150 TRIGLYCERIDES LEVEL eC ([facility]) Cholesterol in HDL [Moles/volume] in Serum or Plasma 46 >40 HDL CHOLESTEROL eCW1 ([facility]) Cholesterol [Moles/volume] in Serum or Plasma 145 <200 CHOLESTEROL LEVEL eC ([facility]) Cholesterol in LDL [Mass/volume] in Serum or Plasma by calculation 82 <100 LDL CHOLESTEROL [facility] ([facility]) 3.152 <5 CHOLESTEROL RISK RATIO eCW1 ([facility]) 99 NON-HDL-C eCW1 ([facility]) ID Date Data Source MAGNESIUM LEVEL 11/24/2020 12:00:00 AM EST eCW1 ([facility]) Name Value Range Interpretation Code Description Data Antoinette rce(s) Supporting Document(s) 2.1 1.8-2.4 MAGNESIUM LEVEL eCW1 ([facility]) ID Date Data Source PSA SCREENING 11/24/2020 12:00:00 AM EST eCW1 ([facility]) Name Value Range Interpretation Code Description Data Antoinette rce(s) Supporting Document(s) 0.56 < 4.00 PSA SCREENING W1 ([facility]) ID Date Data Source HEPATITIS C ANTIBODY INDEX 11/24/2020 12:00:00 AM EST eCW1 ( [facility]) Name Value Range Interpretation Code Description Data Antoinette rce(s) Supporting Document(s) 0.1 <0.8 HEPATITIS C VIRUS MAXIMO INDEX eC W1 ([facility]) ID Date Data Source Comprehensive Metabolic Profile (CMP) 11/24/2020 12:00:00 AM EST eCW1 ([facility]) Name Value Range Interpretation Code Description Data Antoinette rce(s) Supporting Document(s) 1.13 0.70-1.30 CREATININE FOR GFR eCW1 ([facility]) 81 70-100 GLUCOSE, FASTING eCW1 ([facility]) 22 7-18 BLOOD UREA NITROGEN eCW1 ([facility]) 102 98-107 CHLORIDE LEVEL eCW1 ([facility]) 139 136-145 SODIUM LEVEL eCW1 ([facility]) 4.6 3.5-5.1 POTASSIUM SERUM eCW1 ([facility]) > 60.0 >49 GLOMERULAR FILTRATION RATE eCW 1 ([facility]) 31 21-32 CARBON DIOXIDE LEVEL eCW1 ([facility]) 9.2 8.8-10.2 CALCIUM LEVEL eCW1 ([facility]) 26 7-37 AST/SGOT eCW1 ([facility]) 44 12-78 ALT/SGPT eCW1 ([facility]) 1.1 0.2-1.0 BILIRUBIN,TOTAL eCW1 ([facility]) 80 45-117 ALKALINE PHOSPHATASE eCW1 ([facility]) 7.2 6.4-8.2 TOTAL PROTEIN eCW1 ([facility]) 1.2 ALBUMIN/GLOBULIN RATIO eCW1 ([facility]) 3.9 3.2-5.2 ALBUMIN eCW1 ([facility]) ID Date Data Source CBC with Differential 11/24/2020 12:00:00 AM EST eCW1 ([facility]) Name Value Range Interpretation Code Description Data Antoinette rce(s) Supporting Document(s) 15.0 13.5-17.5 HEMOGLOBIN eCW1 ([facility]) 4.92 4.30-6.10 RED BLOOD COUNT eCW1 ([facility]) 8.2 4.0-10.0 WHITE BLOOD COUNT eCW1 ([facility]) 32.0 32.0-36.5 MEAN CORPUSCULAR HGB CONC eCW1 ([facility]) 46.9 42.0-52.0 HEMATOCRIT eCW1 ([facility]) 95.3 80.0-96.0 MEAN CORPUSCULAR VOLUME e CW1 ([facility]) 30.5 27.0-33.0 MEAN CORPUSCULAR HEMOGLOB IN eCW1 ([facility]) 249 150-450 PLATELET COUNT, AUTOMATED eCW1 ([facility]) 46.6 36.0-66.0 NEUTROPHILS % eCW1 ([facility]) 12.1 11.5-14.5 RED CELL DISTRIBUTION WID TH eCW1 ([facility]) 10.7 2.0-8.0 MONO % eCW1 ([facility]) 39.2 24.0-44.0 LYMPH % eCW1 ([facility]) 2.6 0.0-3.0 EOS % eCW1 ([facility]) 0.7 0.0-1.0 BASO % eCW1 ([facility]) 0.9 0.0-0.8 MONO # eCW1 ([facility]) 3.8 1.5-8.5 NEUTROPHILS # eCW1 ([facility]) 3.2 1.5-5.0 LYMPH # eCW1 ([facility]) 0.2 0.0-0.5 EOS # eCW1 ([facility]) 0.1 0.0-0.2 BASO # eCW1 ([facility]) Procedure Social History Code Duration Value Status Description Data Source(s ) Smoking 08/02/2021 07:32:04 AM EDT Never smoked tobacco (findi ng) completed Never smoked tobacco (finding) LISA (Donnie Colin MD [facility]) Smoking 05/23/2021 09:34:35 AM EDT Never smoked tobacco (findi ng) completed Never smoked tobacco (finding) LISA (Donnie Colin MD [facility]) Smoking 01/12/2021 12:00:00 AM EDT Never Smoker completed Never S moker eCW1 ([facility]) Smoking 01/12/2021 12:00:00 AM EDT Never Smoker completed Never S moker eCW1 ([facility]) Smoking 01/12/2021 12:00:00 AM EDT Never Smoker completed Never S moker eCW1 ([facility]) Smoking 01/12/2021 12:00:00 AM EDT Never Smoker completed Never S moker eCW1 ([facility]) Smoking 11/27/2020 12:00:00 AM EST Never Smoker completed Never S moker eCW1 ([facility]) Smoking 11/27/2020 12:00:00 AM EST Never Smoker completed Never S moker eCW1 ([facility]) Smoking 11/25/2020 12:00:00 AM EST Never Smoker completed Never S moker eCW1 ([facility]) Smoking 11/25/2020 12:00:00 AM EST Never Smoker completed Never S moker eCW1 ([facility]) Vital Signs ID Date Data Source UNK Name Value Range Interpretation Code Description Data Source(s) Body weight 252.4 [lb_av] 252.4 [lb_av] eCW1 ([facility]) Body height 68 [in_i] 68 [in_i] W1 ([facility]) Body mass index (BMI) [Ratio] 38.37 kg/m2 38.37 kg/m2 [facility] ([facility]) Systolic blood pressure 136 mm[Hg] 136 mm[Hg] e CW1 ([facility]) Diastolic blood pressure 88 mm[Hg] 88 mm[Hg] W1 ([facility]) Body weight 256.8 [lb_av] 256.8 [lb_av] eCW1 ([facility]) Body height 68 [in_i] 68 [in_i] eCW1 ([facility]) Body mass index (BMI) [Ratio] 39.04 kg/m2 39.04 kg/m2 eCW1 ([facility]) Heart rate 82 /min 82 /min eCW1 ([facility]) Respiratory rate 18 /min 18 /min eCW1 ([facility]) Body temperature 97.7 [degF] 97.7 [degF] eCW1 ( [facility]) Systolic blood pressure 128 mm[Hg] 128 mm[Hg] e CW1 ([facility]) Diastolic blood pressure 82 mm[Hg] 82 mm[Hg] eCW1 ([facility])
--- OUTSIDE RECORDS SUMMARY | 2021-08-03 21:28 | CCD ---
Author Author [facility] [email or web address] ems Organization [facility] ems Address Unknown Phone Unavailable Care Team Providers Care Bleach Liquor Maker Name Role Phone Ken Dubois Unavailable PROBLEMS Type Condition ICD9-CM Code [id number] Code Onset Dates Condition S tatus W/U Status Risk SNOMED Code Notes Problem History of adenomatous polyp of colon Z86.010 Ac tive confirmed [id number] He had an adenomatous polyp in 2008 and again in April 2018. Problem Hypercholesterolemia E78.00 Active confirmed [id number] He is on Lipitor 2 days a week. He stopped taking Crestor because it was not preferred on his pharmaceutical plan. Lipids are controlled to secondary prevention targets. This was last assessed November 2020 and labs are optimal. Problem Gastroesophageal reflux disease without esophagitis K21.9 Active confirmed [id number] He is on omeprazole therapy. His last upper endoscopy was in April 2018 and was fairly unremarkable. Problem Age-related incipient cataract of both eyes H25.09 3 Active confirmed 845835252 Problem Lentigines L81.4 Active confirmed 675702578 Problem Allergic rhinitis J30.9 Active confirmed 61 261434 His symptoms are palliated with ulsl-[id number]-[id number] Chlor-Trimeton. He is no longer using Rhinocort. Problem Melanocytic nevi of trunk D22.5 Active confirmed 570719447 Problem Essential (primary) hypertension I10 Active conf irmed [id number] Echocardiogram was unremarkable in September 2012 and again in August 2018. He was started on lisinopril therapy in 2015 but developed a cough. He is now on losartan 100 mg with hydrochlorothiazide 12.5 mg daily. Problem Sebaceous hyperplasia L73.8 Active confirmed 905992654 Problem Folliculitis L73.9 Active confirmed 3769201 6 Problem Actinic keratoses L57.0 Active confirmed 40 7916293 Problem Seborrheic keratoses L82.1 Active confirmed [id number] ALLERGIES Allergen (clinical drug ingredient) Drug/Non Drug Allergy do cumented on EMR Reaction Allergy Type Onset Date Status Penicillin (For Allergies Use Only) Hives Drug Allerg y Active ENCOUNTERS from 1955 to 2021-06-05 Encounter Location Date Provider Diagnosis [facility] Carlene [address] [facility] [phone] [place] [address] May, Ken Dubois IMMUNIZATIONS Vaccine Route Administration Date [...] Education Language: Question Answer Notes Languages spoken: [place]al[place] Restorationism: Question Answer Notes Restorationism No latter-day beliefs that would impact health care. Domestic [...] Information RESULTS No Results REASON FOR VISIT Surgical Referral MEDICAL (GENERAL) HISTORY Type Description Date [...] Provider Name:Ken Dubois, 2021-12-03 03 :30:00 PM, [facility] [phone], [place], [address], Provider Name:Saida Singletary, 02:45:00 PM, [address] [facility] [phone], [place], [address], Insurance Providers Payer Name Payer Address Payer Phone Insured Name Patient Relati onship to Insured Coverage Start Date Coverage End Date [facility] [id number] [facility] [id number] [place] self
--- OUTSIDE RECORDS SUMMARY | 2021-08-03 21:28 | CCD ---
Author Author Donnie Liao MD [facility] Organization Donnie Liao MD [facility] Address [address] [place] [id number] Phone Care Team Providers Care Elevator Repairer Name Role Phone Yanni RAYMUNDO, Donnie SIMEON Unavailable [phone] Reason for Referral No Reason for Referral [...] Liao MD, FACS Active Plan of Treatment Future Appointments Date Time Location Provider Cataract Evaluation 06/08/2021 2:00PM Donnie Liao MD [facility] Assessments Includes: Assessments for all patient encounters Findings Encounter Date Cortical senile cataract 1 Year Follow-Up with Donnie Quan MD, CAILIN 05/23/2021 Dry eye syndrome 1 Year Follow-Up with Donnie hall MD, FACS 05/23/2021 Essential hypertension 1 Year Follow-Up with [...] Vitreous degeneration TRIAGE NEW PATIENT with Donnie Butler MD, FACS 05/01/2020 Instructions Instructions not supported [...] Recorded Vital Signs Includes: Vital Signs from 05/23/2020 through 05/23/2021No Vital Signs Recorded For Specified Dates Results Includes: Results from 05/23/2020 through 05/23/2021No Results Recorded For Specified Dates History of Present Illness History of Present Illness not supported for this document typeNo History of Present Illness Recorded Social History Description Last Updated Not a current smoker 05/23/2021 Alcohol use 1-2 beers monthly 05/23/2021 No smoking status : Never smoked/ Recode: 4 05/23/2021 No tobacco use 05/23/2021 Not using drugs 05/23/2021 Procedures and Surgical History Surgical History Last Updated History of LASIK surgery of both corneas 2006 021 Surgical / procedural history Right Inquinal Hernia R epair 03/201905/23/2021 Medical History Includes: Medical History in patient's chart Description Last Updated History of arthritis 05/23/2021 History of essential hypertension 05/23/2021 History of hyperlipidemia 05/23/2021 History of hypertension 05/23/2021 Reported medical history Cat Scratch Fever 1996, Hist ory migraines 05/23/2021 Family History Includes: Family History in patient's chart Description Last Updated Fraternal history of hypertension 05/23/2021 Maternal history of heart disease 05/23/2021 Maternal history of hypertension 05/23/2021 Paternal history of arthritis 05/23/2021 Paternal history of cataract 05/23/2021 Paternal history of family history of cancer Review of Systems Review of Systems not [...] 12:11PM Act blue Encounters Includes: Encounters from 05/23/2020 through 05/23/2021 Encounter Provider Location Date Check-In Time Check-Out Time D iagnosis 1 Year Follow-Up Donnie Liao MD, FACS Donnie Torres [facility] 05/23/2021 8:29AM 9:29AM Essential Hypertensi on, Retinopathy Hypertensive, Cataract Senile Cortical, Cataract Senile Nuclear, Dry Eye Syndrome Insurance Includes: Active Insurance Policies Plan Name Member ID Group # Subscriber Relationship Effective Da giuseppe 1 - PRIME RETIRED [id number] Cain Wilburn Advance Directives Includes: Current Advance DirectivesNo Advance Directives Recorded Health Concerns Includes: Active Health ConcernsNo Active Health Concerns Recorded Goals Includes: Active GoalsNo Active Goals Recorded Interventions Includes: Interventions for active GoalsNo Interventions Recorded Evaluations & Outcomes Includes: Evaluations & Outcomes for active GoalsNo Outcomes Recorded
--- NOTE | 2021-08-03 22:13 | REPVR ---
PROCEDURE INFORMATION: Exam: XR Left Knee Exam date and time: 08/03/2021 9:57 PM Age: 66 years old Clinical indication: Pain; Knee; Left; Additional info: Pain after feeling a "pop" TECHNIQUE: Imaging protocol: XR Left knee. Views: 4 or more views. COMPARISON: No relevant prior studies available. FINDINGS: Bones/joints: Normal. Soft tissues: Normal. IMPRESSION: No acute findings. Electronically signed by: Cain Arnold On 08/03/2021 22:12:37 PM
[2021-08-03] MEDS ORDERED: IBUPROFEN 800 MG TAB PO ONE (22:35)
--- NOTE | 2021-08-03 23:17 | REPVR ---
PROCEDURE INFORMATION: Exam: US Left Non-Vascular Joint or Other Extremity Structure Exam date and time: 08/03/2021 10:41 PM Age: 66 years old Clinical indication: Pain; Knee; Left; Additional info: Concern for ruptured popliteal cyst TECHNIQUE: Imaging protocol: Left US joint or other nonvascular extremity structure or structures. Real-time ultrasound with image documentation. Limited study. Exam focused on the lower extremity in the region of clinical interest. COMPARISON: Scrotal, US 01/21/2019 2:51 PM FINDINGS: Soft tissues: No popliteal fossa cyst is identified. Irregular collection of fluid superior to the patella of uncertain etiology. IMPRESSION: 1. No popliteal fossa cyst is seen. 2. Irregular fluid collection is noted superior to the patella. Electronically signed by: Jacobo Liu On 08/03/2021 23:17:01 PM
== END 2021-08-04 00:02 | disposition home or self-care (01) ==
LOC: M ED 21:16
DX: M25.462 Effusion, left knee (principal); S83.92XA Sprain of unspecified site of left knee, initial encounter; X58.XXXA Exposure to other specified factors, initial encounter; Y92.89 Other specified places as the place of occurrence of the external cause; I10 Essential (primary) hypertension; Z87.442 Personal history of urinary calculi; Z79.899 Other long term (current) drug therapy; Z79.82 Long term (current) use of aspirin; Z88.0 Allergy status to penicillin

== ENCOUNTER → 2021-12-07 | Outpatient (CLI) | payer OTHER ==
[~2021-12-07] MED LIST changes: +LOSA100T45 PO; -LOSA100T50 PO
[2021-12-07 11:20] LABS: BASO # 0.1 10^3/uL (0.0-0.2); BASO % 0.8 % (0.0-1.0); EOS # 0.2 10^3/uL (0.0-0.5); EOS % 1.8 % (0.0-3.0); HEMATOCRIT 47.9 % (42.0-52.0); LYMPH # 3.4 10^3/uL (1.5-5.0); LYMPH % 41.1 % (24.0-44.0); MEAN CORPUSCULAR HEMOGLOBIN 31.3 pg (27.0-33.0); MEAN CORPUSCULAR HGB CONC 33.4 g/dl (32.0-36.5); MEAN CORPUSCULAR VOLUME 93.7 fl (80.0-96.0); MONO # 0.9 10^3/uL (0.0-0.8); MONO % 10.4 % (2.0-8.0); NEUTROPHILS # 3.8 10^3/uL (1.5-8.5); NEUTROPHILS % 45.8 % (36.0-66.0); PLATELET COUNT, AUTOMATED 291 10^3/uL (150-450); RED BLOOD COUNT 5.11 10^6/uL (4.30-6.10); WHITE BLOOD COUNT 8.3 10^3/uL (4.0-10.0)
[2021-12-07 11:45] LABS: ALBUMIN 4.2 GM/DL (3.2-5.2); ALT/SGPT 61 U/L (12-78); BILIRUBIN,TOTAL 0.9 MG/DL (0.2-1.0); BLOOD UREA NITROGEN 19 MG/DL (7-18); CALCIUM LEVEL 9.8 MG/DL (8.8-10.2); CARBON DIOXIDE LEVEL 32 MEQ/L (21-32); CHLORIDE LEVEL 103 MEQ/L (98-107); CHOLESTEROL LEVEL 161 MG/DL (<200); CHOLESTEROL RISK RATIO 3.156 (<5); GLOMERULAR FILTRATION RATE > 60.0 (>49); GLUCOSE, FASTING 99 MG/DL (70-100); HDL CHOLESTEROL 51 MG/DL (>40); LDL CHOLESTEROL 97 MG/DL (<100); MAGNESIUM LEVEL 2.3 MG/DL (1.8-2.4); NON-HDL-C 110 MG/DL; POTASSIUM SERUM 4.3 MEQ/L (3.5-5.1); SODIUM LEVEL 138 MEQ/L (136-145); TOTAL PROTEIN 7.8 GM/DL (6.4-8.2); TRIGLYCERIDES LEVEL 63 MG/DL (<150)
== END ==
LOC: M WUC 09:54
PROVIDERS: ATTEND Internal Medicine
DX: Z00.00 Encounter for general adult medical examination without abnormal findings (principal); I10 Essential (primary) hypertension; E78.00 Pure hypercholesterolemia, unspecified; K21.9 Gastro-esophageal reflux disease without esophagitis

== ENCOUNTER → 2022-11-21 | Outpatient (REF) | payer MEDICARE, OTHER ==
[2022-11-21 13:04] LABS: ALBUMIN 3.8 G/DL (3.2-5.2); ALKALINE PHOSPHATASE 71 U/L (46-116); ALT/SGPT 45 U/L (7.0-40); AST/SGOT 24 U/L (<34); BILIRUBIN,TOTAL 0.6 MG/DL (0.3-1.2); BLOOD UREA NITROGEN 23 MG/DL (9-23); CALCIUM LEVEL 9.5 MG/DL (8.3-10.6); CARBON DIOXIDE LEVEL 29 MMOL/L (20-31); CHLORIDE LEVEL 103 MMOL/L (98-107); CHOLESTEROL LEVEL 161 MG/DL (<200); CHOLESTEROL RISK RATIO 3.29 (<5); GLOMERULAR FILTRATION RATE > 60.0 (>49); GLUCOSE, FASTING 97 MG/DL (74-106); HDL CHOLESTEROL 48.9 MG/DL (>40); LDL CHOLESTEROL 98.9 MG/DL (<100); NON-HDL-C 112 MG/DL; POTASSIUM SERUM 4.8 MMOL/L (3.5-5.1); SODIUM LEVEL 140 MMOL/L (136-145); TESTOSTERONE 316 NG/DL (241-827); THYROID STIMULATING HORMONE 2.272 uIU/ML (0.55-4.78); TOTAL PROTEIN 7.2 G/DL (5.7-8.2); TRIGLYCERIDES LEVEL 66 MG/DL (<150)
== END ==
LOC: M SFHCPLAZ 08:01
PROVIDERS: ATTEND Nurse Practitioner Adult Health
DX: R53.83 Other fatigue (principal); I10 Essential (primary) hypertension; E78.00 Pure hypercholesterolemia, unspecified; Z12.5 Encounter for screening for malignant neoplasm of prostate
CPT/HCPCS: 80053; 80061; 84403; 84443; G0103

== ENCOUNTER → 2023-02-03 | Outpatient (CLI) | payer MEDICARE, OTHER ==
[~2023-02-03] MED LIST changes: -LOSA100T45 PO; +LOSA100T46 PO
== END ==
LOC: M SLEEP HO 10:51
PROVIDERS: ATTEND Internal Medicine Cardiovascular Disease
DX: G47.33 Obstructive sleep apnea (adult) (pediatric) (principal)

== ENCOUNTER → 2023-02-20 | Outpatient (CLI) | payer MEDICARE, OTHER | LOC: M WUC 13:23 | PROVIDERS: ATTEND Nurse Practitioner Adult Health | DX: R05.9 Cough, unspecified (principal) ==

== ENCOUNTER → 2023-02-24 | Outpatient (CLI) | payer MEDICARE, OTHER | LOC: M SLEEP 20:00 | PROVIDERS: ATTEND Nurse Practitioner Family | DX: G47.33 Obstructive sleep apnea (adult) (pediatric) (principal) ==

== ENCOUNTER → 2023-09-03 | Day surgery (SDC) | payer MEDICARE, OTHER ==
[~2023-09-03] VITALS: Ht 172.7 cm; Wt 98.0 kg
[~2023-09-03] MED LIST changes: +ALLE4TAB11 PO; +LOSA100T8 PO; +NS 1,000 ML IV ONE; +fentaNYL 100 MCG/2 ML INJECTION As Ordered ONE
[2023-09-03 14:06] VITALS: TEMP 98.8
[2023-09-03 14:20] VITALS: BP 109/57; O2SAT 96
== END | disposition home or self-care (01) ==
LOC: M OPP 11:17
PROVIDERS: ATTEND Internal Medicine Gastroenterology
DX: Z86.010 Personal history of colon polyps (principal); D12.6 Benign neoplasm of colon, unspecified; K64.0 First degree hemorrhoids; K57.30 Diverticulosis of large intestine without perforation or abscess without bleeding; R12 Heartburn; I10 Essential (primary) hypertension; E78.00 Pure hypercholesterolemia, unspecified; K21.9 Gastro-esophageal reflux disease without esophagitis; M19.90 Unspecified osteoarthritis, unspecified site; G47.30 Sleep apnea, unspecified; Z88.0 Allergy status to penicillin; Z88.8 Allergy status to other drugs, medicaments and biological substances; Z79.899 Other long term (current) drug therapy
CPT/HCPCS: 43239; 45380; 88305; J3010

== ENCOUNTER → 2023-11-21 | Outpatient (CLI) | payer MEDICARE, OTHER ==
[~2023-11-21] MED LIST changes: -NS 1,000 ML IV ONE; -fentaNYL 100 MCG/2 ML INJECTION As Ordered ONE
[2023-11-21 12:37] LABS: BASO # 0.1 10^3/uL (0.0-0.2); BASO % 0.6 % (0.0-1.0); EOS # 0.2 10^3/uL (0.0-0.5); EOS % 2.8 % (0.0-3.0); HEMATOCRIT 45.6 % (42.0-52.0); HEMOGLOBIN 15.1 g/dl (13.5-17.5); LYMPH % 37.9 % (24.0-44.0); MEAN CORPUSCULAR HEMOGLOBIN 31.7 pg (27.0-33.0); MEAN CORPUSCULAR HGB CONC 33.1 g/dl (32.0-36.5); MEAN CORPUSCULAR VOLUME 95.8 fl (80.0-96.0); MONO # 0.7 10^3/uL (0.0-0.8); MONO % 8.3 % (2.0-8.0); NEUTROPHILS # 3.9 10^3/uL (1.5-8.5); NEUTROPHILS % 49.9 % (36.0-66.0); PLATELET COUNT, AUTOMATED 233 10^3/uL (150-450); RED BLOOD COUNT 4.76 10^6/uL (4.30-6.10); WHITE BLOOD COUNT 7.9 10^3/uL (4.0-10.0)
[2023-11-21 12:40] LABS: THYROID STIMULATING HORMONE 2.464 uIU/ML (0.55-4.78)
[2023-11-21 12:41] LABS: ALBUMIN 3.9 G/DL (3.2-5.2); ALKALINE PHOSPHATASE 76 U/L (46-116); ALT/SGPT 30 U/L (7.0-40); AST/SGOT 23 U/L (<34); BILIRUBIN,TOTAL 0.7 MG/DL (0.3-1.2); BLOOD UREA NITROGEN 23 MG/DL (9-23); CALCIUM LEVEL 9.1 MG/DL (8.3-10.6); CARBON DIOXIDE LEVEL 30 MMOL/L (20-31); CHLORIDE LEVEL 105 MMOL/L (98-107); CHOLESTEROL LEVEL 140 MG/DL (<200); CREATININE FOR GFR 0.98 MG/DL (0.70-1.30); GLOMERULAR FILTRATION RATE > 60.0 (>49); GLUCOSE, FASTING 92 MG/DL (74-106); HDL CHOLESTEROL 51.7 MG/DL (>40); LDL CHOLESTEROL 77.5 MG/DL (<100); NON-HDL-C 88.3 MG/DL; POTASSIUM SERUM 4.5 MMOL/L (3.5-5.1); SODIUM LEVEL 141 MMOL/L (136-145); TRIGLYCERIDES LEVEL 54 MG/DL (<150)
== END ==
LOC: M WUC 08:41
PROVIDERS: ATTEND Nurse Practitioner Adult Health
DX: Z00.00 Encounter for general adult medical examination without abnormal findings (principal); Z86.010 Personal history of colon polyps; E78.00 Pure hypercholesterolemia, unspecified; Z12.5 Encounter for screening for malignant neoplasm of prostate
CPT/HCPCS: 36415; 80053; 80061; 84443; 85025; G0103

== ENCOUNTER 2024-05-17 11:59 | Emergency (ER) | payer MEDICARE, OTHER ==
[~2024-05-17] VITALS: Ht 172.7 cm; Wt 104.7 kg
[2024-05-17] MEDS ORDERED: DIGO0.123 PO (12:07)
[2024-05-17] MEDS ORDERED: ELIQ5TAB PO (12:07)
[2024-05-17 12:53] LABS: INR 1.03; PROTHROMBIN TIME 13.2 SECONDS (12.5-14.5)
[2024-05-17] MEDS: FLECAINIDE 50MG TABLET PO STA (12:56)
[2024-05-17 13:02] LABS: BLOOD UREA NITROGEN 20 MG/DL (9-23); CALCIUM LEVEL 9.7 MG/DL (8.3-10.6); CARBON DIOXIDE LEVEL 25 MMOL/L (20-31); CHLORIDE LEVEL 106 MMOL/L (98-107); CREATININE FOR GFR 1.18 MG/DL (0.70-1.30); GLOMERULAR FILTRATION RATE > 60.0 (>49); GLUCOSE, FASTING 98 MG/DL (74-106); MAGNESIUM LEVEL 1.9 MG/DL (1.8-2.4); POTASSIUM SERUM 3.7 MMOL/L (3.5-5.1); SODIUM LEVEL 139 MMOL/L (136-145)
[2024-05-17] MEDS ORDERED: FLEC50HA PO (13:07)
[2024-05-17 16:30] VITALS: BP 108/70; TEMP 98.2; O2SAT 97
== END 2024-05-17 16:56 | disposition home or self-care (01) ==
LOC: M ED 11:59
DX: I48.91 Unspecified atrial fibrillation (principal); I44.0 Atrioventricular block, first degree; I45.19 Other right bundle-branch block; I10 Essential (primary) hypertension; E78.5 Hyperlipidemia, unspecified; Z88.8 Allergy status to other drugs, medicaments and biological substances; Z88.0 Allergy status to penicillin; Z79.01 Long term (current) use of anticoagulants; Z79.811 Long term (current) use of aromatase inhibitors; Z79.899 Other long term (current) drug therapy

== ENCOUNTER → 2024-08-19 | Outpatient (CLI) | payer MEDICARE, OTHER ==
[~2024-08-19] MED LIST changes: +DIGO0.123 PO; +ELIQ5TAB PO; +FLEC50HA PO
== END ==
LOC: M EKG 14:43
PROVIDERS: ATTEND Internal Medicine Cardiovascular Disease
DX: I48.0 Paroxysmal atrial fibrillation (principal)

== ENCOUNTER → 2024-11-30 | Outpatient (CLI) | payer MEDICARE, OTHER ==
[2024-11-30 11:32] LABS: ALBUMIN 3.7 G/DL (3.2-5.2); ALKALINE PHOSPHATASE 81 U/L (40-129); ALT/SGPT 36 U/L (7.0-40); AST/SGOT 28 U/L (<34); BLOOD UREA NITROGEN 21 MG/DL (9-23); CALCIUM LEVEL 8.9 MG/DL (8.3-10.6); CARBON DIOXIDE LEVEL 30 MMOL/L (20-31); CHLORIDE LEVEL 102 MMOL/L (98-107); CHOLESTEROL LEVEL 165 MG/DL (<200); CHOLESTEROL RISK RATIO 2.95 (<5); CREATININE FOR GFR 1.04 MG/DL (0.70-1.30); GLOMERULAR FILTRATION RATE > 60.0 (>49); GLUCOSE, FASTING 90 MG/DL (74-106); HDL CHOLESTEROL 55.9 MG/DL (>40); LDL CHOLESTEROL 88.3 MG/DL (<100); MAGNESIUM LEVEL 1.9 MG/DL (1.8-2.4); NON-HDL-C 109.1 MG/DL; POTASSIUM SERUM 4.2 MMOL/L (3.5-5.1); PSA SCREENING 0.99 NG/ML (< 4.00); SODIUM LEVEL 139 MMOL/L (136-145); TOTAL PROTEIN 7.2 G/DL (5.7-8.2); TRIGLYCERIDES LEVEL 104 MG/DL (<150)
[2024-11-30 11:33] LABS: FREE T4 1.18 NG/DL (0.89-1.76)
[2024-11-30 11:34] LABS: THYROID STIMULATING HORMONE 2.178 uIU/ML (0.55-4.78)
== END ==
LOC: M WUC 08:29
PROVIDERS: ATTEND Nurse Practitioner Adult Health
DX: Z00.00 Encounter for general adult medical examination without abnormal findings (principal); Z12.5 Encounter for screening for malignant neoplasm of prostate; I10 Essential (primary) hypertension; E78.00 Pure hypercholesterolemia, unspecified
CPT/HCPCS: 36415; 80053; 80061; 83735; 84439; 84443; G0103